=== PATIENT | female | born 1985 | race Two or more races ===

== ENCOUNTER 2021-02-10 10:10 | Emergency (ER) | payer MEDICAID, OTHER ==
[~2021-02-10] VITALS: Ht 162.6 cm; Wt 59.0 kg
[2021-02-10] MEDS ORDERED: DOPamine 1600mCg/ml 400MG/250ml NSorD5 KIT/BAG IV ONE (10:11)
[2021-02-10] MEDS ORDERED: EPINEPHrine HCL 1 MG/10 ML SYRG IV ONE (10:11)
[2021-02-10] MEDS ORDERED: ATROPINE SULF 1 MG/10ml SYR IV ONE (10:11)
[2021-02-10] MEDS ORDERED: CALCIUM CHLOR(10%) 100MG/ML 10ML SYRINGE IV ONE (10:11)
[2021-02-10] MEDS ORDERED: SODIUM BICARBONATE 8.4% INJ 50ML SYRINGE IV ONE (10:11)
[2021-02-10] MEDS ORDERED: SODIUM BICARBONATE 8.4 % INJ 50ML VIAL IV ONE (10:20)
[2021-02-10] MEDS ORDERED: NOREPINEPHRINE 8 MG/250ML KIT 250 ML IV ONE (10:22)
[2021-02-10] MEDS: EPINEPHrine HCL 250 ML IV SCH ×3 (10:22→11:15)
[2021-02-10] MEDS ORDERED: EPINEPHrine HCL 250 ML IV ONE (10:24)
[2021-02-10] MEDS ORDERED: SODIUM BICARBONATE 50ML VIAL 150 ML in SODIUM CHLORIDE 0.9% 1,000 ML IV ONE (10:45)
[2021-02-10] MEDS ORDERED: EPINEPHrine HCL 250 ML IV SCH (10:45)
[2021-02-10 10:57] LABS: Hematocrit 42.8 % (36.0-46.0); Hemoglobin 13.8 g/dL (12.2-16.2); Mean Corpuscular Hemoglobin 31.6 pg (28.0-32.0); Mean Corpuscular Hgb Conc. 32.2 g/dL (32.0-36.0); Mean Corpuscular Volume 97.9 fL (80.0-100.0); Platelet Count (auto) 189 10^3/uL (140-450); Red Blood Cells 4.37 10^6/uL (4.0-5.20); Red Cell Distribution Width 14.2 % (11.8-14.3); White Blood Cell 6.1 10^3/uL (4.4-10.8)
[2021-02-10] MEDS ORDERED: PHENYLEPHRINE IV 250 ML IV ONE ×2 (11:00→11:01)
[2021-02-10 11:01] LABS: Band Neutrophils % (manual) 0; Basophils % (manual) 0 (0.0-2.0); Blast Cells 0; Eosinophils % (manual) 0 (0-7); Myelocytes % 0; Promyelocytes % 0; Reactive Lymphocytes 0
[2021-02-10 11:05] LABS: INR 1.18 (0.9-1.15); Partial Thromboplastin Time 56.9 sec (23.0-31.2)
[2021-02-10 11:10] LABS: Albumin 2.5 g/dL (3.4-5.0); Anion Gap 30 (5-15); Blood Urea Nitrogen 21 mg/dL (7-18); Calcium 12.2 mg/dL (8.5-10.1); Carbon Dioxide 15 mmol/L (21-32); Chloride 105 mmol/L (98-107); Glucose 307 mg/dL (74-106); Potassium 4.6 mmol/L (3.5-5.1); Sodium 150 mmol/L (136-145)
[2021-02-10 11:14] LABS: Alanine Aminotransferase 211 U/L (13-56); Alkaline Phosphatase 65 U/L (45-117); Aspartate Aminotransferase 235 U/L (15-37); BUN/Creatinine Ratio 14.3; Bilirubin, Total 0.3 mg/dL (0.2-1.0); GFR African American 54 mL/min; GFR Non-African American 44 mL/min; Total Protein 5.3 g/dL (6.4-8.2)
[2021-02-10] MEDS ORDERED: SODIUM CHLORIDE 0.9% 3,000 ML IV ONE (11:15)
[2021-02-10] MEDS ORDERED: PHENYLEPHRINE IV 250 ML IV SCH (11:15)
[2021-02-10] MEDS ORDERED: DOPamine 1600MCG/ML D5W 250 ML IV SCH (11:15)
[2021-02-10] MEDS ORDERED: NOREPINEPHRINE 8 MG/250ML KIT 250 ML IV SCH (11:15)
[2021-02-10 11:30] VITALS: BP 76/30
[2021-02-10 12:13] LABS: Lymphocytes % (manual) 91 (10.0-50.0); Metamyelocytes % 1; Monocytes % (manual) 3 (0-12)
[2021-02-10 13:41] LABS: Lactic Acid w/Reflex 28.3 mmol/L (0.4-2.0)
== END 2021-02-10 12:05 | disposition designated cancer center or children's hospital (05) ==
LOC: ER 10:10 → EDBD 10:10 → ER 12:05
DX: I46.9 Cardiac arrest, cause unspecified (principal); J96.00 Acute respiratory failure, unspecified whether with hypoxia or hypercapnia; F17.210 Nicotine dependence, cigarettes, uncomplicated; F12.10 Cannabis abuse, uncomplicated; F15.10 Other stimulant abuse, uncomplicated
CPT/HCPCS: 31500; 36415; 36556; 36600; 71045; 80053; 82805; 83605; 83880; 84484; 85007; 85027; 85610; 85730; 87040; 92950; 93005; 96365; 96366; 99291; J0171; J1265; J2370; J7030; 94003; 96368